=== PATIENT | male | born 1975 | race Caucasian/White ===

== ENCOUNTER 2018-06-04 06:50 | Inpatient (IN) | payer SELFPAY ==
[~2018-06-04] VITALS: Ht 160 cm; Wt 65.3 kg
[2018-06-04 06:50] VITALS: BP 153/99
--- NOTE | 2018-06-04 06:57 | NUR ---
AMBULATED TO ER BED 6
--- NOTE | 2018-06-04 07:00 | NUR ---
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 + VOMITTING. DENIES N/D AT THIS TIME. PT STATES HIS LAST DRINK WAS LAST NIGHT. 6/10 PAIN SCALE AT THIS TIME. PT IS AAOX4, VSS AT THIS TIME, BED DOWN, BEDRAIL UP X 1, ER MD AWARE AND NOTIFIED OF PT STATUS.
[2018-06-04] MEDS ORDERED: MULTIVITAMIN IV ONE ×5 (07:30)
[2018-06-04] MEDS ORDERED: THIAMINE IV ONE ×5 (07:30)
[2018-06-04] MEDS ORDERED: FOLIC ACID IV ONE ×5 (07:30)
[2018-06-04] MEDS ORDERED: LORazepam 2 MG/ML VIAL IVP ONE (07:30)
[2018-06-04] MEDS ORDERED: ONDANSETRON 4 MG/2 ML VIAL IVP ONE (07:30)
[2018-06-04] MEDS ORDERED: [UNRECOGNIZED DRUG - OTHER] IV ONE ×5 (07:30)
[2018-06-04] MEDS ORDERED: NACL 0.9% 1,000 ML IV ONE (07:30)
--- NOTE | 2018-06-04 07:35 | NUR ---
Patient being evaluated by physician at bedside.
[2018-06-04] MEDS ORDERED: FOLIC ACID IV SCH ×5 (07:38)
[2018-06-04] MEDS ORDERED: [UNRECOGNIZED DRUG - OTHER] IV SCH ×5 (07:38)
[2018-06-04] MEDS ORDERED: MULTIVITAMIN IV SCH ×5 (07:38)
[2018-06-04] MEDS ORDERED: THIAMINE IV SCH ×5 (07:38)
--- NOTE | 2018-06-04 07:40 | NUR ---
x-ray at bedside
--- NOTE | 2018-06-04 07:55 | NUR ---
lab at bedside
[2018-06-04 08:06] LABS: BASOPHILS % (AUTO) 0.5 % (0.0-2.0); EOSINOPHILS # (AUTO) 0.1 K/uL (0-0.4); EOSINOPHILS % (AUTO) 1.9 % (0.0-4.0); HEMATOCRIT 42.7 % (36-52); HEMOGLOBIN 14.6 g/dL (12.0-18.0); LYMPHOCYTES # (AUTO) 0.6 K/uL (2.0-11.5); LYMPHOCYTES % (AUTO) 13.2 % (20.5-51.1); MEAN CORPUSCULAR HEMOGLOBIN 38 pg (27-31); MEAN CORPUSCULAR HGB CONC 34 g/dL (33-37); MEAN CORPUSCULAR VOLUME 110.1 fL (80-94); MONOCYTES # (AUTO) 0.4 K/uL (0.8-1.0); MONOCYTES % (AUTO) 8.9 % (1.7-9.3); NEUTROPHILS # (AUTO) 3.6 K/uL (1.8-7.7); NEUTROPHILS % (AUTO) 75.5 % (42.2-75.2); PLATELET COUNT (AUTO) 90 K/uL (140-450); RED BLOOD CELL COUNT(AUTO) 3.88 MIL/uL (4.20-6.10); RED CELL DISTRIBUTION WIDTH 13.9 % (11.6-13.7); WHITE BLOOD COUNT (AUTO) 4.7 K/uL (4.8-10.8)
[2018-06-04 08:43] LABS: ALBUMIN 4.1 g/dL (3.4-5.0); ANION GAP 13.2 (8-16); CARBON DIOXIDE 29.2 mmol/L (21-32); CREATININE 0.6 mg/dL (0.7-1.3); POTASSIUM 3.4 mmol/L (3.5-5.1); TOTAL BILIRUBIN 1.5 mg/dL (0.0-1.0)
[2018-06-04] MEDS: DEXT 5% /NACL 0.9% 1,000 ML IV SCH ×2 (10:16→18:36)
[2018-06-04] MEDS ORDERED: HYDROcodone/APAP 5/325 MG 1 TAB TAB PO PRN (10:20)
[2018-06-04] MEDS ORDERED: LORazepam 2 MG/ML VIAL IM/IVP PRN (10:20)
[2018-06-04] MEDS ORDERED: DOCUSATE SODIUM 100 MG GELCAP PO PRN (10:20)
[2018-06-04] MEDS ORDERED: MORPHINE SULFATE 2 MG/ML SYR IVP PRN (10:20)
[2018-06-04] MEDS ORDERED: ACETAMINOPHEN 325 MG TAB PO PRN (10:20)
[2018-06-04] MEDS ORDERED: ZOLPIDEM 5 MG TAB PO PRN (10:20)
[2018-06-04] MEDS ORDERED: ONDANSETRON 4 MG/2 ML VIAL IM/IVP PRN (10:20)
[2018-06-04] MEDS ORDERED: LORazepam 2 MG/ML VIAL IVP PRN (11:05)
--- NOTE | 2018-06-04 11:06 | NUR ---
Patient will be admitted to care of . Admited to tele 106-a. Will go to room 106-a. Belongings list completed. Report to sean quach.
--- NOTE | 2018-06-04 11:20 | NUR ---
PATIENT ADMIT FROM ED ON [facility]. REPORT TAKEN FROM ROMY RODRIGUEZ. PATIENT VITAL SIGNS STABLE UPON ARRIVAL. AMBULATED SELF FROM [facility] TO BED. PATIENT EDUCATED TO ROOM SAFETY, BED LEFT IN LOW POSITION WITH TWO BED RAILS UP AND BED IN LOW POSITION. CALL LIGHT WITHIN REACH. PATIENT STATES THAT ALL NEEDS MET AT THIS TIME.
[2018-06-04 11:49] LABS: AMYLASE 55 U/L (25-115); CHOL/HDL RATIO 2.5 (1-4.5); HDL CHOLESTEROL 86 mg/dL (40-60); LDL (CALC) 121 mg/dL (60-100); PHOSPHORUS 2.9 mg/dL (2.5-4.9); TRIGLYCERIDES 63 mg/dL (30-150)
[2018-06-04 12:00] VITALS: BP 142/87
[2018-06-04] MEDS ORDERED: chlordiazePOXIDE 25 MG CAP PO SCH (12:00)
[2018-06-04] MEDS ORDERED: LACTULOSE 20 GM/30 ML UDC PO SCH (12:30)
[2018-06-04] MEDS ORDERED: POTASSIUM CHLORIDE 40 MEQ, LIDOCAINE 1% 25 MG in NACL 0.9% 250 ML IV SCH (13:00)
--- NOTE | 2018-06-04 13:15 | NUR ---
PATIENT SCHEDULED MEDS ADMINISTERED AND TOLERATED WELL. ALL NEEDS MET AT THIS TIME.
[2018-06-04 13:38] LABS: COLOR,URINE YELLOW (YELLOW)
[2018-06-04 13:40] LABS: BLOOD, URINE NEGATIVE (NEGATIVE); UGLUCOSE NEGATIVE (NEGATIVE)
[2018-06-04 13:43] LABS: APPEARANCE,URINE CLEAR (CLEAR); BILIRUBIN,URINE NEGATIVE (NEGATIVE); LEUKOCYTE ESTERASE ,URINE NEGATIVE (NEGATIVE); NITRITE, URINE NEGATIVE (NEGATIVE)
[2018-06-04 13:46] LABS: BARBITURATE, URINE NEG. ng/ml (NEG <=200); BENZODIAZEPINE, URINE NEG. ng/mL (NEG <=200); CANNABINOID, URINE NEG. ng/mL (NEG <=50); COCAINE, URINE NEG. ng/mL (NEG <=300); OPIATE, URINE NEG. ng/mL (NEG <=2000); PHENCYCLIDINE SCREEN,URINE NEG. ng/mL (NEG <=25)
--- NOTE | 2018-06-04 15:13 | NUR ---
PATIENT SLEEPING IN BED IN SUPINE POSITION. ALL NEEDS MET AT THIS TIME.
[2018-06-04 16:00] VITALS: BP 115/82
[2018-06-04] MEDS: chlordiazePOXIDE 25 MG CAP PO SCH (17:19)
--- NOTE | 2018-06-04 17:49 | NUR ---
ADMINISTERED PATIENT'S SCHEDULED MEDICATIONS. TOLERATED WELL. ALL NEEDS MET AT THIS TIME.
[2018-06-04] MEDS ORDERED: MAGNESIUM CITRATE 300 ML BTL PO SCH (18:00)
--- NOTE | 2018-06-04 18:26 | NUR ---
ADMINISTERED PATIENT'S SCHEDULED MED. PATIENT TOLERATED WELL. ALL NEEDS MET AT THIS TIME. WILL CONTINUE TO MONITOR.
--- NOTE | 2018-06-04 19:16 | NUR ---
ENDORSED PATIENT TO STUMPER FELLER FOR CONTINUITY OF CARE. PATIENT STABLE AT THIS TIME. ALL NEEDS ARE MET.
--- NOTE | 2018-06-04 19:20 | NUR ---
RECEIVED PATIENT AWAKE SITTING ON BED ACCOMPANIED BY FAMILY MEMBER. PATIENT AMBULATORY, AAOX4, SERBIAN SPEAKING. EXPLAINED PLAN OF CARE. BED IN LOW LOCKED PRECAUTION. CALL LIGHT WITHIN REACH.
[2018-06-04 20:00] VITALS: BP 125/87
[2018-06-04] MEDS: LACTULOSE 20 GM/30 ML UDC PO SCH (20:07)
--- NOTE | 2018-06-04 21:00 | NUR ---
CHECKED PATIENT ASLEEP ON BED. V/S TAKEN AND RECORDED WITHIN NORMAL RANGE. ALL NEEDS ATTENDED. BED IN LOW LOCKED POSITION. CALL LIGHT WITHIN REACH.
[2018-06-05] VITALS: BP 130/86
--- NOTE | 2018-06-05 | NUR ---
SEEN PATIENT ASLEEP ON BED. V/S TAKEN AND RECORDED WNL. DENIES PAIN. CALL LIGHT WITHIN REACH. NO S/S OF DISTRESS NOTED AT THIS TIME.
[2018-06-05] MEDS ORDERED: LORazepam 2 MG/ML VIAL IM/IVP PRN ×2 (03:00)
[2018-06-05] MEDS: DEXT 5% /NACL 0.9% 1,000 ML IV SCH (03:53)
[2018-06-05 04:00] VITALS: BP 127/83
[2018-06-05 05:22] LABS: BASOPHILS % (AUTO) 0.5 % (0.0-2.0); EOSINOPHILS # (AUTO) 0.2 K/uL (0-0.4); EOSINOPHILS % (AUTO) 4.3 % (0.0-4.0); HEMATOCRIT 39.5 % (36-52); HEMOGLOBIN 13.4 g/dL (12.0-18.0); LYMPHOCYTES # (AUTO) 0.7 K/uL (2.0-11.5); LYMPHOCYTES % (AUTO) 14.7 % (20.5-51.1); MEAN CORPUSCULAR HEMOGLOBIN 38 pg (27-31); MEAN CORPUSCULAR HGB CONC 34 g/dL (33-37); MEAN CORPUSCULAR VOLUME 110.8 fL (80-94); MONOCYTES # (AUTO) 0.5 K/uL (0.8-1.0); MONOCYTES % (AUTO) 9.6 % (1.7-9.3); NEUTROPHILS # (AUTO) 3.5 K/uL (1.8-7.7); NEUTROPHILS % (AUTO) 70.9 % (42.2-75.2); PLATELET COUNT (AUTO) 76 K/uL (140-450); RED BLOOD CELL COUNT(AUTO) 3.56 MIL/uL (4.20-6.10); RED CELL DISTRIBUTION WIDTH 13.6 % (11.6-13.7); WHITE BLOOD COUNT (AUTO) 4.9 K/uL (4.8-10.8)
[2018-06-05 06:21] LABS: ANION GAP 9.8 (8-16); CARBON DIOXIDE 29.9 mmol/L (21-32); CREATININE 0.6 mg/dL (0.7-1.3); POTASSIUM 3.7 mmol/L (3.5-5.1)
[2018-06-05 06:25] LABS: MAGNESIUM 1.9 mg/dL (1.8-2.4); PHOSPHORUS 2.7 mg/dL (2.5-4.9)
[2018-06-05 06:25] LABS: HEPATITIS A ANTIBODY IGM Negative (Negative); HEPATITIS B CORE AB TOTAL Negative (Negative); HEPATITIS B SURFACE ANTIBODY Non Reactive (.); HEPATITIS B SURFACE ANTIGEN Negative (Negative); T4 (THYROXINE) 5.7 ug/dL (4.5-12.0)
--- NOTE | 2018-06-05 07:10 | NUR ---
GAVE REPORT TO AM SHIFT NURSE AT BEDSIDE FOR CONTINUITY OF CARE. PATIENT IN STABLE CONDITION.
--- NOTE | 2018-06-05 07:15 | NUR ---
I RECEIVED REPORT FROM COMPONENT PREP OPERATOR NURSE. PT IS AAOX4, AMBULATORY, ON ROOM AIR, IV IS ON THE LEFT HAND, PATENT, INTACT, FLUSHING WELL, NO S/S OF RESPIRATORY DISTRESS OR DISCOMFORT NOTED AT THIS TIME, DISCUSSED PLAN OF CARE WITH PT, PT VERBALIZED UNDERSTANDING, SAFETY/FALL PRECAUTIONS ARE IN PLACE, CALL LIGHT IS WITHIN REACH, WILL CONTINUE TO MONITOR.
[2018-06-05 08:00] VITALS: BP 144/87
[2018-06-05] MEDS: LACTULOSE 20 GM/30 ML UDC PO SCH ×2 (08:11→08:17)
[2018-06-05] MEDS: chlordiazePOXIDE 25 MG CAP PO SCH (08:12)
--- NOTE | 2018-06-05 08:36 | NUR ---
PATIENT HAS BEEN SCREENED AND CATEGORIZED HIGH NUTRITION RISK. PATIENT WILL BE SEEN WITHIN 1-2 DAYS OF ADMISSION. 06/05/[address]
[2018-06-05] MEDS ORDERED: VITB12 PO (08:46)
--- NOTE | 2018-06-05 08:46 | NUR ---
CALLED DIETARY AND SPOKE TO JIGNESH. I ASKED HER IF THEY COULD SEND A FULL LIQUID DIET TRAY FOR PATIENT. JIGNESH SAID SHE WOULD GO AHEAD AND SEND IT OVER.
[2018-06-05] MEDS ORDERED: CYAN1TAB2 PO (08:54)
[2018-06-05] MEDS ORDERED: THIAMINE 100 MG TAB PO SCH (09:00)
[2018-06-05] MEDS ORDERED: MULTIVITAMIN 1 TAB PO SCH (09:00)
[2018-06-05] MEDS ORDERED: FOLIC ACID 1 MG TAB PO SCH (09:00)
[2018-06-05 10:13] VITALS: BP 144/87
--- NOTE | 2018-06-05 11:20 | NUR ---
DISCHARGE INSTRUCTIONS GIVEN. IV REMOVED. IV CATHETER TIP IN TACT. INSTRUCTED TO FOLLOW-UP WITH PCP IN 3-5 DAYS. PATIENT STABLE UPON DISCHARGE.
== END 2018-06-05 11:05 | disposition home or self-care (01) | DRG 441 ==
LOC: MED 06:50 → MTU 10:16
PROVIDERS: ADMIT General Practice; ATTEND General Practice
DX: K72.90 Hepatic failure, unspecified without coma (principal); K85.90 Acute pancreatitis without necrosis or infection, unspecified; K70.30 Alcoholic cirrhosis of liver without ascites; E87.6 Hypokalemia; F10.20 Alcohol dependence, uncomplicated; K76.0 Fatty (change of) liver, not elsewhere classified; K80.20 Calculus of gallbladder without cholecystitis without obstruction; Z71.41 Alcohol abuse counseling and surveillance of alcoholic; Y90.9 Presence of alcohol in blood, level not specified; Z83.3 Family history of diabetes mellitus; Z82.49 Family history of ischemic heart disease and other diseases of the circulatory system
CPT/HCPCS: 36415; 71045; 76705; 80048; 80053; 80305; 81003; 82140; 82150; 83036; 83615; 83690; 83735; 84100; 84436; 84443; 85025; 85610; 85730; 86704; 86706; 86708; 86709; 86803; 87081; 87340; 93005; 96365; 96366; 96375; 99285; A9153; G0482; J2001; J2060; J2405; J3411; J3475; J3480; J3490; J7030; J7042; Q0092

== ENCOUNTER 2018-10-28 13:43 | Emergency (ER) | payer MEDICAID ==
[~2018-10-28] VITALS: Ht 162.6 cm; Wt 77.1 kg
[~2018-10-28 13:43] MED LIST: CYAN1TAB2 PO
[2018-10-28 13:55] VITALS: BP 104/81
--- NOTE | 2018-10-28 14:02 | NUR ---
PT AMBULATED TO ER BED 9
--- NOTE | 2018-10-28 14:33 | NUR ---
PT PRESENTED TO THE ED WITH THE CHIEF C/O LACERATION ON RIGHT PINKY FINGER. BLEEDING HAS STOPPED. PT ADMITS DRINKING ALCOHOL. DENIES ANY OTHER PROBLEM AT THIS TIME. DENIES ANY MEDICAL HX. STATES PAIN OF 10/10 AT THIS TIME. VVS. ER MD AWARE.
--- NOTE | 2018-10-28 14:54 | NUR ---
PT BEING EVALUATED BY DR. ROBLES AT THIS TIME.
[2018-10-28] MEDS ORDERED: LIDOCAINE 1% 500 MG/50 ML VIAL INJ ONE ×2 (15:22→15:25)
[2018-10-28] MEDS ORDERED: NEOMYCIN/POLYMYXIN/BACITRACIN 0.9 GM/1 PKT TP ONE ×3 (15:22→15:25)
[2018-10-28] MEDS ORDERED: cefTRIAXone 1,000 MG in LIDOCAINE 1% ***ER ONLY *** 2.1 ML IM ONE (15:25)
[2018-10-28] MEDS ORDERED: IBUPROFEN 800 MG TAB PO ONE (15:25)
[2018-10-28] MEDS ORDERED: cefTRIAXone 1,000 MG VIAL ONE (16:10)
[2018-10-28] MEDS ORDERED: LIDOCAINE MPF 1% 5mL VIAL ONE (16:12)
[2018-10-28 18:10] VITALS: BP 124/74
--- NOTE | 2018-10-28 18:10 | NUR ---
Patient discharged with v/s stable. Written and verbal after care instructions given and explained. Patient alert, oriented and verbalized understanding of instructions. Ambulatory with steady gait. All questions addressed prior to discharge. ID band removed. Patient advised to follow up with PMD. Rx of motrin, keflex given. Patient educated on indication of medication including possible reaction and side effects. Opportunity to ask questions provided and answered.
== END 2018-10-28 18:10 | disposition home or self-care (01) ==
LOC: MED 13:43
DX: S61.217A Laceration without foreign body of left little finger without damage to nail, initial encounter (principal); Z79.899 Other long term (current) drug therapy; X58.XXXA Exposure to other specified factors, initial encounter; Y93.89 Activity, other specified; Y92.89 Other specified places as the place of occurrence of the external cause; Y99.8 Other external cause status
CPT/HCPCS: 12002; 73140; 90471; 90715; 96372; 99283; J0696; J2001; Q0092

== ENCOUNTER 2018-11-03 19:14 | Emergency (ER) | payer MEDICAID ==
[~2018-11-03] VITALS: Ht 160 cm; Wt 76.8 kg
[2018-11-03 19:28] VITALS: BP 141/85
--- NOTE | 2018-11-03 19:31 | NUR ---
TO LOBBY A/W BED, MÓNICA PORTILLO NOTED
--- NOTE | 2018-11-03 19:54 | NUR ---
PT AMBULATED TO ER BED 03
--- NOTE | 2018-11-03 20:00 | NUR ---
43/M PRESENTS TO ED FOR SUTURE REMOVAL. PT WITH 3CM LACERATION WITH 7 SUTURES ON R PINKY FINGER, WELL APPROXIMATED, -REDNESS, -SWELLING, WITH DRIED BROWN DISCOLORATION AROUND EDGES, +CMS DENIES MED HX, REPORTS FINISHING RX ABX. DENIES FEVER
[2018-11-03] MEDS ORDERED: BACITRACIN OINT 500 UNITS/GM PKT TP ONE (20:25)
--- NOTE | 2018-11-03 20:35 | NUR ---
BACITRACIN OINTMENT APPLIED TO RIGHT 5TH DIGIT TO RIGHT HAND. NON ADHERENT DRESSING APPLIED, WRAPPED WITH 2 INCH KERLIX AND SECURED WITH TAPE. PT TOLERATED WELL. CMS INTACT BEFORE AND AFTER APPLICATION OF DRESSING. PT PENDING DISCHARGE HOME AT THIS TIME. PT ADVISED TO KEEP DRESSING IN PLACE AND BEGIN SHOWERING NORMALLY TOMORROW AND EDUCATED ABOUT WASHING WOULD WITH SOAP AND WATER AND PAT DRY COMPLETED.
[2018-11-03 20:38] VITALS: BP 141/85
--- NOTE | 2018-11-03 20:38 | NUR ---
Patient discharged with v/s stable. Written and verbal after care instructions given and explained. Patient verbalized understanding. Ambulatated with steady gait. Pt provided with a work excuse to return after 11/05/18. All questions addressed prior to discharge. Advised to follow up with PMD. Wound care instructions provided to patient and verbalized understanding.
== END 2018-11-03 20:38 | disposition home or self-care (01) ==
LOC: MED 19:14
DX: S61.411D Laceration without foreign body of right hand, subsequent encounter (principal); R03.0 Elevated blood-pressure reading, without diagnosis of hypertension; X58.XXXD Exposure to other specified factors, subsequent encounter; Z79.899 Other long term (current) drug therapy
CPT/HCPCS: 99283

== ENCOUNTER 2019-02-25 19:16 | Emergency (ER) | payer MEDICAID ==
[~2019-02-25] VITALS: Ht 160 cm; Wt 79.4 kg
[2019-02-25 19:24] VITALS: BP 135/89
--- NOTE | 2019-02-25 19:27 | NUR ---
TO LOBBY A/W BED AND XRAY AMBULATORY
--- NOTE | 2019-02-25 19:53 | NUR ---
PT AMBULATED TO ER BED 05
--- NOTE | 2019-02-25 20:00 | NUR ---
PT C/O RT SHOULDER PAIN RADIATES TO THE BACK FOR 3 WEEKS; PT STATES THE PAIN IS THROBBING AND DENIES TRAUMA NOR INJURY. DENIES N/V/D; SKIN IS PINK/WARM/DRY; AAOX3 WITH EVEN AND STEADY GAIT; PT DENIES ANY FEVER, CP, SOB, OR COUGH AT THIS TIME; PATIENT STATES PAIN OF 10/10 AT THIS TIME; VSS; PATIENT POSITIONED FOR COMFORT; HOB ELEVATED; BEDRAILS UP X1; BED DOWN. ER MD MADE AWARE OF PT STATUS.
[2019-02-25] MEDS ORDERED: CYCLOBENZAPRINE 10 MG TAB PO ONE (20:15)
[2019-02-25] MEDS ORDERED: IBUPROFEN 600 MG TAB PO ONE (20:15)
[2019-02-25 20:16] LABS: BASOPHILS # (AUTO) 0.1 K/uL (0.00-0.22); BASOPHILS % (AUTO) 1.1 % (0.0-2.0); EOSINOPHILS # (AUTO) 0.2 K/uL (0-0.4); EOSINOPHILS % (AUTO) 3.3 % (0.0-4.0); HEMATOCRIT 40.2 % (36-52); HEMOGLOBIN 13.5 g/dL (12.0-18.0); LYMPHOCYTES # (AUTO) 2.2 K/uL (2.0-11.5); LYMPHOCYTES % (AUTO) 45.5 % (20.5-51.1); MEAN CORPUSCULAR HEMOGLOBIN 36 pg (27-31); MEAN CORPUSCULAR HGB CONC 34 g/dL (33-37); MEAN CORPUSCULAR VOLUME 108.1 fL (80-94); MONOCYTES # (AUTO) 0.4 K/uL (0.8-1.0); MONOCYTES % (AUTO) 9.1 % (1.7-9.3); PLATELET COUNT (AUTO) 102 K/uL (140-450); RED BLOOD CELL COUNT(AUTO) 3.72 MIL/uL (4.20-6.10); RED CELL DISTRIBUTION WIDTH 14.6 % (11.6-13.7); WHITE BLOOD COUNT (AUTO) 4.8 K/uL (4.8-10.8)
[2019-02-25 20:29] LABS: PROTHROMBIN TIME 10.3 secs (10.8-13.4)
--- NOTE | 2019-02-25 21:04 | NUR ---
Patient discharged with v/s stable. Written and verbal after care instructions given and explained. Patient verbalized understanding. Ambulatory with steady gait. All questions addressed prior to discharge. Advised to follow up with PMD.
[2019-02-25 21:05] VITALS: BP 127/82
== END 2019-02-25 21:04 | disposition home or self-care (01) ==
LOC: MED 19:16
DX: S46.811A Strain of other muscles, fascia and tendons at shoulder and upper arm level, right arm, initial encounter (principal); R04.0 Epistaxis; X58.XXXA Exposure to other specified factors, initial encounter; Y93.89 Activity, other specified; Y92.89 Other specified places as the place of occurrence of the external cause; Y99.8 Other external cause status
CPT/HCPCS: 36415; 73030; 85025; 85610; 85730; 99284; Q0092

== ENCOUNTER 2019-03-16 10:44 | Emergency (ER) | payer MEDICAID ==
[~2019-03-16] VITALS: Ht 154.9 cm; Wt 66.9 kg
[2019-03-16 10:57] VITALS: BP 115/76
--- NOTE | 2019-03-16 11:03 | NUR ---
PATIENT AMBULATED TO BED 2.
--- NOTE | 2019-03-16 11:19 | NUR ---
BILAT NARE DRYNESS/DRY BLOOD X 1 MONTH, UPPER AND LOWER LIP DRYNESS AND SWELLING X 2 WEEKS. REQUESTING MEDICAL CLEARANCE TO RETURN TO WORK FOR RIGHT SHOULDER PAIN. PT SEEN HERE FOR SAME COMPLAINTS 2-3 WEEKS AGO, RX. PT DENIES PAIN. HX: DENIES RX: UNKNOWN
[2019-03-16 11:40] VITALS: BP 115/76
== END 2019-03-16 11:40 | disposition home or self-care (01) ==
LOC: MED 10:44
DX: R04.0 Epistaxis (principal); Z98.890 Other specified postprocedural states; Z79.899 Other long term (current) drug therapy
CPT/HCPCS: 99283

== ENCOUNTER 2019-07-28 18:33 | Emergency (ER) | payer MEDICAID ==
[~2019-07-28] VITALS: Ht 160 cm; Wt 66.2 kg
[2019-07-28 18:39] VITALS: BP 124/77
--- NOTE | 2019-07-28 18:44 | NUR ---
Patient ambulated to bed 3. RN evaluating patient at bedside.
--- NOTE | 2019-07-28 18:54 | NUR ---
DR. BENTLEY EVALUATING PT AT BEDSIDE.
--- NOTE | 2019-07-28 18:56 | NUR ---
C/O DIFFICULTY BREATHING THROUGH B/L NARES DUDE TO BLEEDING FROM B/L NARES X 1 MONTH AND UNINTENTIONAL WEIGHT LOSS 25LBS OVER LAST 6 MONTHS. CRUSTED BLOOD NOTED IN BILATERAL NARES. DENIES FEVER, N/V/D. HX: NONE Addendum: 07/28/19 at 1920 by DEEPALI C/O DIFFICULTY BREATHING THROUGH B/L NARES DUE TO BLEEDING FROM B/L NARES X 1 MONTH AND UNINTENTIONAL WEIGHT LOSS 25LBS OVER LAST 6 MONTHS. CRUSTED BLOOD NOTED IN BILATERAL NARES. DENIES FEVER, N/V/D. NAD AT THIS TIME. HX: NONE
--- NOTE | 2019-07-28 19:05 | NUR ---
BODS DEVELOPER AT BEDSIDE
--- NOTE | 2019-07-28 19:14 | NUR ---
REPORT TO ELVIN STANTON. PT IN STABLE CONDITION.
--- NOTE | 2019-07-28 19:17 | NUR ---
RECEIVED REPORT FROM ROMY SIM.
[2019-07-28 19:19] LABS: BASOPHILS % (AUTO) 0.5 % (0.0-2.0); EOSINOPHILS # (AUTO) 0.1 K/uL (0-0.4); HEMATOCRIT 36.5 % (36-52); HEMOGLOBIN 12.5 g/dL (12.0-18.0); LYMPHOCYTES # (AUTO) 0.7 K/uL (2.0-11.5); LYMPHOCYTES % (AUTO) 15.4 % (20.5-51.1); MEAN CORPUSCULAR HEMOGLOBIN 38 pg (27-31); MEAN CORPUSCULAR HGB CONC 34 g/dL (33-37); MONOCYTES # (AUTO) 0.5 K/uL (0.8-1.0); NEUTROPHILS # (AUTO) 3.4 K/uL (1.8-7.7); NEUTROPHILS % (AUTO) 72.1 % (42.2-75.2); PLATELET COUNT (AUTO) 62 K/uL (140-450); RED BLOOD CELL COUNT(AUTO) 3.28 MIL/uL (4.20-6.10); RED CELL DISTRIBUTION WIDTH 13.2 % (11.6-13.7); WHITE BLOOD COUNT (AUTO) 4.7 K/uL (4.8-10.8)
[2019-07-28 19:34] LABS: PROTHROMBIN TIME 11.6 secs (10.8-13.4)
[2019-07-28 19:36] LABS: ALBUMIN 4.2 g/dL (3.4-5.0); ANION GAP 14.4 (8-16); CARBON DIOXIDE 27.3 mmol/L (21-32); CREATININE 0.7 mg/dL (0.7-1.3); POTASSIUM 3.7 mmol/L (3.5-5.1); TOTAL BILIRUBIN 1.6 mg/dL (0.0-1.0)
[2019-07-28 19:53] VITALS: BP 123/75
--- NOTE | 2019-07-28 19:53 | NUR ---
Patient discharged with v/s stable. Written and verbal after care instructions given and explained. Patient verbalized understanding. Ambulatory with steady gait. All questions addressed prior to discharge. Advised to follow up with PMD. ACCOMPANYING PT.
== END 2019-07-28 19:53 | disposition home or self-care (01) ==
LOC: MED 18:33
DX: K70.9 Alcoholic liver disease, unspecified (principal); D61.818 Other pancytopenia; R04.0 Epistaxis; F10.10 Alcohol abuse, uncomplicated; Z79.899 Other long term (current) drug therapy; Z98.890 Other specified postprocedural states
CPT/HCPCS: 36415; 80053; 82948; 85025; 85610; 85730; 99283